=== PATIENT | female | born 1950 | race Caucasian/White ===

== ENCOUNTER 2018-08-12 09:12 | Day surgery (SDC) | payer MEDICARE, BC ==
[~2018-08-12] VITALS: Ht 172.7 cm; Wt 70.5 kg
[2018-08-12 11:23] VITALS: BP 132/80
[2018-08-12] MEDS ORDERED: NAPR220C2 PO (11:23)
[2018-08-12] MEDS ORDERED: NORT25CA78 PO (11:23)
[2018-08-12] MEDS ORDERED: ASPI1TAB31 PO (11:23)
[2018-08-12] MEDS ORDERED: SUMA50TA3 PO (11:23)
[2018-08-12] MEDS ORDERED: VERAPAMIL 2.5 MG/ML, 2ML ONE (12:35)
[2018-08-12] MEDS ORDERED: FENTANYL PF 100 MCG/2ML ONE (12:35)
[2018-08-12] MEDS ORDERED: MIDAZOLAM 1 MG/ML, 2ML ONE (12:35)
[2018-08-12] MEDS ORDERED: LIDOCAINE-MPF 1%, 5ML ONE (12:35)
[2018-08-12] MEDS ORDERED: HEPARIN 1,000 UNITS/ML, 10ML ONE (13:01)
[2018-08-12] MEDS ORDERED: SODIUM CHLORIDE 0.9% 1,000 ML IV SCH (13:18)
== END 2018-08-12 15:54 | disposition home or self-care (01) ==
LOC: CACL 09:12 → EDSEX 11:15 → CACL 15:54
PROVIDERS: ATTEND Internal Medicine Cardiovascular Disease
DX: I44.7 Left bundle-branch block, unspecified (principal); R07.89 Other chest pain
CPT/HCPCS: 93458; 99156; C1769; C1894; J1644; J2250; J3010; Q9967

== ENCOUNTER 2020-09-15 14:00 | Inpatient (IN) | payer MEDICARE, BC ==
[~2020-09-15] VITALS: Ht 172.7 cm; Wt 77.2 kg
[~2020-09-15 14:00] MED LIST: ASPI1TAB31 PO; NAPR220C2 PO; NORT25CA78 PO; SUMA50TA3 PO
[2020-09-15] MEDS ORDERED: BISACODYL 10 MG SUPP PR PRN (15:30)
[2020-09-15] MEDS ORDERED: LABETALOL 5MG/ML, 20ML IVPush PRN (15:30)
[2020-09-15] MEDS ORDERED: POLYETHYLENE GLYCOL 17 GM PACKET PO PRN (15:30)
[2020-09-15] MEDS ORDERED: ONDANSETRON 2MG/ML, 2ML IVPush PRN (15:30)
[2020-09-15] MEDS ORDERED: OXYcodone IR 5MG TABLET PO PRN (15:30)
[2020-09-15] MEDS ORDERED: PLEASE ENTER HEIGHT AND WEIGHT MC SCH (16:30)
[2020-09-15] MEDS ORDERED: DOBUTAMINE/D5W PMX 250 ML ONE (16:32)
[2020-09-15] MEDS: DOBUTAMINE IV PRN (16:35)
[2020-09-15] MEDS: DEXTROSE 5% IV PRN (16:35)
[2020-09-15 16:42] VITALS: BP 99/55
[2020-09-15 17:46] LABS: MEAN CORPUSCULAR HEMOGLOBIN 27.1 pg (27.0-34.8); MEAN CORPUSCULAR HGB CONC 31.5 g/dL (32.4-35.8); MEAN PLATELET VOLUME 7.9 fL (7.4-10.4); PLATELET COUNT 196 x10^3/uL (130-400); RED BLOOD COUNT 4.03 x10^6/uL (3.82-5.3)
[2020-09-15 17:56] LABS: ANION GAP 10 mmol/L (5-15); CALCIUM 7.8 mg/dL (8.5-10.1); CHLORIDE 99 mmol/L (98-107); CREATININE 2.92 mg/dL (0.55-1.02)
[2020-09-15 18:06] LABS: MD YES
[2020-09-15 18:08] LABS: ANISOCYTOSIS 1+; BANDS%(MANUAL) 4 % (0-7); HYPOCHROMIA 1+; LYMPH#(MANUAL) 2.64 x10^3/uL (1-3.4); LYMPHS% (MANUAL) 15 % (22-44); MONOS#(MANUAL) 0.35 x10^3/uL (0.3-2.7); MONOS% (MANUAL) 2 % (2-9); SEGS% (MANUAL) 79 % (42-75)
[2020-09-15 18:09] LABS: ECHINOCYTES 1+; OVALOCYTES 1+; POLYCHROMASIA 1+
[2020-09-15 18:10] LABS: <PLATELET ESTIMATE> ADEQUATE; <PLT MORPHOLOGY> NORMAL PLT MORPH
[2020-09-15] MEDS ORDERED: FUROSEMIDE 40 MG/4 ML IV ONE (21:00)
[2020-09-15] MEDS: DILTIAZEM 5 MG/ML, 5ML IVPush PRN (21:19)
[2020-09-15] MEDS: HEPARIN 5,000 UNITS/ML, 1ML SQ SCH (21:19)
[2020-09-16] MEDS: DILTIAZEM 5 MG/ML, 5ML IVPush PRN (00:27)
[2020-09-16 00:29] LABS: MICROSCOPIC INDICATED
[2020-09-16 00:36] LABS: CHLORIDE,URINE RANDOM 50 mmol/L; POTASSIUM,URINE RANDOM 36 mmol/L; SODIUM,URINE RANDOM 14 mmol/L
[2020-09-16 04:40] LABS: MEAN CORPUSCULAR HEMOGLOBIN 27.6 pg (27.0-34.8); MEAN CORPUSCULAR HGB CONC 32.7 g/dL (32.4-35.8); PLATELET COUNT 168 x10^3/uL (130-400); RED BLOOD COUNT 3.89 x10^6/uL (3.82-5.3); RED CELL DISTRIBUTION WIDTH 15.6 % (9.6-15.2)
[2020-09-16 04:47] LABS: INTERNATIONAL NORMALIZED RATIO 2.12 (0.93-1.1); PROTHROMBIN TIME 22.3 Seconds (9.6-11.5)
[2020-09-16 04:49] LABS: ALBUMIN 2.9 g/dL (3.4-5.0); ANION GAP 9 mmol/L (5-15); CALCIUM 7.8 mg/dL (8.5-10.1); CHLORIDE 98 mmol/L (98-107); CREATININE 2.44 mg/dL (0.55-1.02)
[2020-09-16 05:08] LABS: ALANINE AMINOTRANSFERASE 3360 U/L (12-78); ALKALINE PHOSPHATASE 181 U/L (45-117); BILIRUBIN,TOTAL 1.4 mg/dL (0.2-1.0)
[2020-09-16] MEDS ORDERED: DOBUTAMINE/D5W PMX 0 ML ONE (05:46)
[2020-09-16] MEDS: HEPARIN 5,000 UNITS/ML, 1ML SQ SCH ×3 (05:49→22:16)
[2020-09-16 05:51] LABS: MD YES
[2020-09-16 05:53] LABS: <PLATELET ESTIMATE> ADEQUATE; <PLT MORPHOLOGY> NORMAL PLT MORPH; ANISOCYTOSIS 1+; BAND#(MANUAL) 0.14 x10^3/uL; BANDS%(MANUAL) 1 % (0-7); HYPOCHROMIA 1+; LYMPHS% (MANUAL) 8 % (22-44); MONOS#(MANUAL) 0.55 x10^3/uL (0.3-2.7); MONOS% (MANUAL) 4 % (2-9); OVALOCYTES 1+; POLYCHROMASIA 1+; SEG#(MANUAL) 11.92 x10^3/uL (1.8-6.8); SEGS% (MANUAL) 87 % (42-75)
[2020-09-16] MEDS: DEXTROSE 5% IV PRN (07:47)
[2020-09-16] MEDS: DOBUTAMINE IV PRN (07:47)
[2020-09-16 08:24] LABS: FREE T4 (FREE THYROXINE) 1.16 ng/dL (0.76-1.46)
[2020-09-16] MEDS ORDERED: DIGOXIN 0.25 MG/ML, 2ML IVPush ONE (09:30)
[2020-09-16] MEDS: SENNA/DOCUSATE TABLET PO SCH (10:17)
[2020-09-17] MEDS: HEPARIN 5,000 UNITS/ML, 1ML SQ SCH (05:48)
[2020-09-17 06:07] LABS: BASOPHILS % (AUTO) 0 % (0-1); EOSINOPHILS % (AUTO) 1 % (1-7); LYMPHOCYTES % (AUTO) 14 % (22-44); MEAN CORPUSCULAR HEMOGLOBIN 27.6 pg (27.0-34.8); MEAN CORPUSCULAR HGB CONC 32.6 g/dL (32.4-35.8); MEAN PLATELET VOLUME 8.2 fL (7.4-10.4); MONOCYTES % (AUTO) 9 % (2-9); NEUTROPHILS % (AUTO) 76 % (42-75); PLATELET COUNT 169 x10^3/uL (130-400); RED BLOOD COUNT 4.04 x10^6/uL (3.82-5.3); RED CELL DISTRIBUTION WIDTH 15.9 % (9.6-15.2)
[2020-09-17 06:09] LABS: MD NO
[2020-09-17 06:16] LABS: INTERNATIONAL NORMALIZED RATIO 1.5 (0.93-1.1); PROTHROMBIN TIME 15.8 Seconds (9.6-11.5)
[2020-09-17 06:18] LABS: ALBUMIN 2.8 g/dL (3.4-5.0); ANION GAP 8 mmol/L (5-15); CHLORIDE 99 mmol/L (98-107); CREATININE 1.16 mg/dL (0.55-1.02)
[2020-09-17 06:32] LABS: ALANINE AMINOTRANSFERASE 2546 U/L (12-78); ALKALINE PHOSPHATASE 203 U/L (45-117); BILIRUBIN,TOTAL 1.3 mg/dL (0.2-1.0); TOTAL PROTEIN 6.1 g/dL (6.4-8.2)
[2020-09-17] MEDS: SENNA/DOCUSATE TABLET PO SCH (09:00)
[2020-09-17] MEDS ORDERED: HEPARIN 5,000 UNITS/ML, 1ML IV ONE (09:30)
[2020-09-17] MEDS: HEPARIN 25,000 UNITS/250ML PMX 250 ML IV PRN (10:03)
[2020-09-17] MEDS ORDERED: POTASSIUM CHLORIDE 20 MEQ TAB.ER.PRT PO ONE (13:00)
[2020-09-17] MEDS ORDERED: PROPOFOL 10 MG/ML, 50ML ONE (13:27)
[2020-09-17] MEDS: FUROSEMIDE 20 MG/2 ML IV SCH (14:54)
[2020-09-17 14:58] LABS: ANA SCREEN NEGATIVE (Negative)
[2020-09-17 17:54] VITALS: BP 111/76
[2020-09-17] MEDS ORDERED: CALCIUM CARBONATE 500 MG TAB.CHEW PO PRN (18:30)
[2020-09-17 19:38] VITALS: BP 116/76
[2020-09-17] MEDS: HEPARIN 5,000 UNITS/ML, 1ML IV PRN (22:51)
[2020-09-18 01:55] VITALS: BP 121/69
[2020-09-18 05:43] LABS: ALBUMIN 2.7 g/dL (3.4-5.0); ANION GAP 7 mmol/L (5-15); CALCIUM 8.3 mg/dL (8.5-10.1); CHLORIDE 97 mmol/L (98-107)
[2020-09-18 05:51] LABS: ALANINE AMINOTRANSFERASE 2085 U/L (12-78); ALKALINE PHOSPHATASE 213 U/L (45-117); BILIRUBIN,TOTAL 1.5 mg/dL (0.2-1.0); CREATININE 0.82 mg/dL (0.55-1.02); TOTAL PROTEIN 6.1 g/dL (6.4-8.2)
[2020-09-18 08:05] VITALS: BP 120/82
[2020-09-18] MEDS: SENNA/DOCUSATE TABLET PO SCH (08:47)
[2020-09-18] MEDS: FUROSEMIDE 20 MG/2 ML IV SCH (08:48)
[2020-09-18] MEDS ORDERED: POTASSIUM CHLORIDE 20 MEQ TAB.ER.PRT PO SCH (09:00)
[2020-09-18] MEDS: HEPARIN 25,000 UNITS/250ML PMX 250 ML IV PRN (12:14)
[2020-09-18 13:44] VITALS: BP 113/77
[2020-09-18 20:30] VITALS: BP 116/76
[2020-09-18] MEDS: LISINOPRIL 5 MG TABLET PO SCH (20:30)
[2020-09-19 01:25] VITALS: BP 118/77
[2020-09-19 06:20] LABS: BASOPHILS % (AUTO) 1 % (0-1); EOSINOPHILS % (AUTO) 4 % (1-7); LYMPHOCYTES % (AUTO) 26 % (22-44); MEAN CORPUSCULAR HEMOGLOBIN 27.2 pg (27.0-34.8); MEAN CORPUSCULAR HGB CONC 32.7 g/dL (32.4-35.8); MONOCYTES % (AUTO) 14 % (2-9); NEUTROPHILS % (AUTO) 56 % (42-75); PLATELET COUNT 162 x10^3/uL (130-400); RED BLOOD COUNT 3.96 x10^6/uL (3.82-5.3)
[2020-09-19 06:26] LABS: CHLORIDE 98 mmol/L (98-107)
[2020-09-19 06:30] LABS: MD NO
[2020-09-19 06:37] LABS: ALANINE AMINOTRANSFERASE 1378 U/L (12-78); ALBUMIN 2.3 g/dL (3.4-5.0); ALKALINE PHOSPHATASE 180 U/L (45-117); ANION GAP 5 mmol/L (5-15); BILIRUBIN,TOTAL 1.3 mg/dL (0.2-1.0); CALCIUM 7.8 mg/dL (8.5-10.1); TOTAL PROTEIN 5.6 g/dL (6.4-8.2)
[2020-09-19 06:57] VITALS: BP 112/73
[2020-09-19] MEDS ORDERED: POTASSIUM CHLORIDE 20 MEQ TAB.ER.PRT PO ONE (08:00)
[2020-09-19] MEDS: FUROSEMIDE 40 MG TABLET PO SCH (10:27)
[2020-09-19] MEDS: SENNA/DOCUSATE TABLET PO SCH (10:27)
[2020-09-19 12:20] VITALS: BP 102/68
[2020-09-19] MEDS: HEPARIN 25,000 UNITS/250ML PMX 250 ML IV PRN (13:57)
[2020-09-19 19:30] VITALS: BP 106/73
[2020-09-19] MEDS: LISINOPRIL 5 MG TABLET PO SCH (20:02)
[2020-09-20] VITALS (7 sets, daily range): BP systolic 93–114; BP diastolic 65–72
[2020-09-20 05:58] LABS: ANION GAP 8 mmol/L (5-15); CALCIUM 7.9 mg/dL (8.5-10.1); CHLORIDE 98 mmol/L (98-107)
[2020-09-20] MEDS: HEPARIN 5,000 UNITS/ML, 1ML IV PRN (06:13)
[2020-09-20] MEDS ORDERED: POTASSIUM CHLORIDE 20 MEQ TAB.ER.PRT PO ONE (08:30)
[2020-09-20] MEDS: SENNA/DOCUSATE TABLET PO SCH (09:23)
[2020-09-20] MEDS: CARVEDILOL 3.125 MG TABLET PO SCH ×2 (09:24→20:59)
[2020-09-20] MEDS: FUROSEMIDE 40 MG TABLET PO SCH (09:24)
[2020-09-20] MEDS: HEPARIN 25,000 UNITS/250ML PMX 250 ML IV PRN (15:31)
[2020-09-20] MEDS: LISINOPRIL 5 MG TABLET PO SCH (20:57)
[2020-09-21 01:00] VITALS: BP 118/62
[2020-09-21 05:32] LABS: BASOPHILS % (AUTO) 0 % (0-1); EOSINOPHILS % (AUTO) 4 % (1-7); LYMPHOCYTES % (AUTO) 22 % (22-44); MEAN CORPUSCULAR HGB CONC 32.2 g/dL (32.4-35.8); MEAN PLATELET VOLUME 8.2 fL (7.4-10.4); MONOCYTES % (AUTO) 13 % (2-9); NEUTROPHILS % (AUTO) 61 % (42-75); PLATELET COUNT 178 x10^3/uL (130-400); RED BLOOD COUNT 4.21 x10^6/uL (3.82-5.3); RED CELL DISTRIBUTION WIDTH 16.4 % (9.6-15.2)
[2020-09-21 05:37] LABS: ALBUMIN 2.4 g/dL (3.4-5.0); ANION GAP 9 mmol/L (5-15); CALCIUM 8.4 mg/dL (8.5-10.1); CHLORIDE 100 mmol/L (98-107)
[2020-09-21 05:41] LABS: ALANINE AMINOTRANSFERASE 795 U/L (12-78); ALKALINE PHOSPHATASE 158 U/L (45-117); BILIRUBIN,TOTAL 0.9 mg/dL (0.2-1.0); CREATININE 0.66 mg/dL (0.55-1.02)
[2020-09-21] MEDS: CARVEDILOL 3.125 MG TABLET PO SCH ×2 (05:59→18:49)
[2020-09-21 06:19] LABS: MD SCAN
[2020-09-21 07:52] VITALS: BP 99/63
[2020-09-21] MEDS: FUROSEMIDE 40 MG TABLET PO SCH (08:13)
[2020-09-21] MEDS: SENNA/DOCUSATE TABLET PO SCH (08:14)
[2020-09-21] MEDS ORDERED: POTASSIUM CHLORIDE 20 MEQ TAB.ER.PRT PO ONE (09:30)
[2020-09-21] MEDS: HEPARIN 25,000 UNITS/250ML PMX 250 ML IV PRN (10:32)
[2020-09-21 10:38] LABS: CHOL/HDL RATIO 1.9; LDL/HDL RATIO 0.7 (0.5-3.0)
[2020-09-21 12:35] VITALS: BP 105/63
[2020-09-21 18:38] VITALS: BP 94/65
[2020-09-21 19:25] VITALS: BP 105/73
[2020-09-22 01:03] VITALS: BP 112/66
[2020-09-22] MEDS: CARVEDILOL 3.125 MG TABLET PO SCH ×2 (05:33→18:14)
[2020-09-22] MEDS: HEPARIN 25,000 UNITS/250ML PMX 250 ML IV PRN (07:20)
[2020-09-22 07:26] VITALS: BP 104/71
[2020-09-22] MEDS ORDERED: POTASSIUM CHLORIDE 20 MEQ TAB.ER.PRT PO ONE (07:30)
[2020-09-22] MEDS: SENNA/DOCUSATE TABLET PO SCH (08:21)
[2020-09-22] MEDS: LOSARTAN 25MG TABLET PO SCH (08:21)
[2020-09-22] MEDS: SPIRONOLACTONE 25 MG TABLET PO SCH (08:21)
[2020-09-22] MEDS: FUROSEMIDE 40 MG TABLET PO SCH (08:22)
[2020-09-22 11:59] LABS: INTERNATIONAL NORMALIZED RATIO 1.07 (0.93-1.1); PROTHROMBIN TIME 11.3 Seconds (9.6-11.5)
[2020-09-22 13:41] VITALS: BP 91/67
[2020-09-22 18:10] VITALS: BP 99/66
[2020-09-22] MEDS ORDERED: PHARMACY MAY ADJ FOR RENAL FX MC PRN (19:30)
[2020-09-22] MEDS ORDERED: HEPARIN wt. based STROKE protocol MC PRN (20:00)
[2020-09-22] MEDS ORDERED: HEPARIN 25,000 UNITS/250ML PMX 250 ML IV PRN (20:00)
[2020-09-22 20:21] VITALS: BP 93/63
[2020-09-22] MEDS ORDERED: APIXABAN 5 MG TABLET PO SCH (21:00)
[2020-09-23 00:17] VITALS: BP 106/72
[2020-09-23] MEDS ORDERED: NITROGLYCERIN 0.4 MG BOTTLE (25 TABS) SL PRN (02:00)
[2020-09-23] MEDS ORDERED: NITROGLYCERIN 0.4 MG/SPRAY SL PRN (02:00)
[2020-09-23 06:29] VITALS: BP 97/68
[2020-09-23] MEDS: CARVEDILOL 3.125 MG TABLET PO SCH ×2 (06:29→18:17)
[2020-09-23 06:36] LABS: CHLORIDE 105 mmol/L (98-107)
[2020-09-23 06:42] LABS: BASOPHILS % (AUTO) 1 % (0-1); EOSINOPHILS % (AUTO) 6 % (1-7); LYMPHOCYTES % (AUTO) 25 % (22-44); MEAN CORPUSCULAR HEMOGLOBIN 26.9 pg (27.0-34.8); MEAN CORPUSCULAR HGB CONC 32.3 g/dL (32.4-35.8); MEAN PLATELET VOLUME 9.1 fL (7.4-10.4); MONOCYTES % (AUTO) 9 % (2-9); NEUTROPHILS % (AUTO) 59 % (42-75); PLATELET COUNT 205 x10^3/uL (130-400); RED BLOOD COUNT 4.11 x10^6/uL (3.82-5.3); RED CELL DISTRIBUTION WIDTH 16.4 % (9.6-15.2)
[2020-09-23 06:46] LABS: ALANINE AMINOTRANSFERASE 437 U/L (12-78); ALBUMIN 2.3 g/dL (3.4-5.0); ALKALINE PHOSPHATASE 141 U/L (45-117); ANION GAP 6 mmol/L (5-15); BILIRUBIN,TOTAL 0.6 mg/dL (0.2-1.0); CALCIUM 9.1 mg/dL (8.5-10.1); CREATININE 0.75 mg/dL (0.55-1.02); TOTAL PROTEIN 6.1 g/dL (6.4-8.2)
[2020-09-23 07:29] VITALS: BP 97/67
[2020-09-23 08:01] LABS: MD SCAN
[2020-09-23] MEDS ORDERED: BUMETANIDE 1 MG TABLET PO SCH (09:00)
[2020-09-23] MEDS: SENNA/DOCUSATE TABLET PO SCH (09:10)
[2020-09-23] MEDS: SPIRONOLACTONE 25 MG TABLET PO SCH (09:11)
[2020-09-23] MEDS: LOSARTAN 25MG TABLET PO SCH (09:11)
[2020-09-23] MEDS: TORSEMIDE 20 MG TABLET PO SCH (11:42)
[2020-09-23] MEDS ORDERED: LORazepam 0.5MG TABLET PO ONE (12:30)
[2020-09-23 14:40] VITALS: BP 95/63
[2020-09-23 18:14] VITALS: BP 95/66
[2020-09-23 18:53] VITALS: BP 96/58
[2020-09-23] MEDS: APIXABAN 5 MG TABLET PO SCH (20:57)
[2020-09-24] MEDS: MELATONIN 3 MG TABLET PO PRN ×2 (01:12→20:44)
[2020-09-24 01:14] VITALS: BP 97/69
[2020-09-24 05:44] LABS: ALANINE AMINOTRANSFERASE 366 U/L (12-78); ALBUMIN 2.6 g/dL (3.4-5.0); ANION GAP 8 mmol/L (5-15); CALCIUM 9.2 mg/dL (8.5-10.1); CHLORIDE 104 mmol/L (98-107); CREATININE 0.71 mg/dL (0.55-1.02)
[2020-09-24 05:49] LABS: ALKALINE PHOSPHATASE 129 U/L (45-117); BILIRUBIN,TOTAL 0.7 mg/dL (0.2-1.0); TOTAL PROTEIN 6.5 g/dL (6.4-8.2)
[2020-09-24 07:10] VITALS: BP 110/75
[2020-09-24] MEDS: CARVEDILOL 3.125 MG TABLET PO SCH ×2 (07:12→17:23)
[2020-09-24] MEDS: APIXABAN 5 MG TABLET PO SCH ×2 (08:17→20:41)
[2020-09-24] MEDS: SENNA/DOCUSATE TABLET PO SCH (08:17)
[2020-09-24 08:40] VITALS: BP 87/56
[2020-09-24] MEDS ORDERED: SPIRONOLACTONE 25 MG TABLET PO SCH (09:00)
[2020-09-24] MEDS: LOSARTAN 25MG TABLET PO SCH (09:27)
[2020-09-24] MEDS: TORSEMIDE 20 MG TABLET PO SCH (09:28)
[2020-09-24 12:22] VITALS: BP 103/66
[2020-09-24 17:23] VITALS: BP 106/75
[2020-09-24 19:52] VITALS: BP 115/82
[2020-09-25 00:43] VITALS: BP 101/67
[2020-09-25 05:08] LABS: BASOPHILS % (AUTO) 1 % (0-1); EOSINOPHILS % (AUTO) 3 % (1-7); LYMPHOCYTES % (AUTO) 20 % (22-44); MEAN CORPUSCULAR HEMOGLOBIN 26.6 pg (27.0-34.8); MEAN CORPUSCULAR HGB CONC 31.9 g/dL (32.4-35.8); MEAN PLATELET VOLUME 7.9 fL (7.4-10.4); MONOCYTES % (AUTO) 9 % (2-9); NEUTROPHILS % (AUTO) 67 % (42-75); PLATELET COUNT 236 x10^3/uL (130-400); RED BLOOD COUNT 3.95 x10^6/uL (3.82-5.3); RED CELL DISTRIBUTION WIDTH 16.3 % (9.6-15.2)
[2020-09-25 05:10] LABS: ALANINE AMINOTRANSFERASE 287 U/L (12-78); ALBUMIN 2.5 g/dL (3.4-5.0); ANION GAP 7 mmol/L (5-15); CALCIUM 8.9 mg/dL (8.5-10.1); CHLORIDE 106 mmol/L (98-107); CREATININE 0.63 mg/dL (0.55-1.02)
[2020-09-25 05:12] LABS: ALKALINE PHOSPHATASE 127 U/L (45-117); BILIRUBIN,TOTAL 0.6 mg/dL (0.2-1.0); TOTAL PROTEIN 6.6 g/dL (6.4-8.2)
[2020-09-25 05:18] LABS: MD NO
[2020-09-25 06:21] VITALS: BP 107/74
[2020-09-25] MEDS: CARVEDILOL 3.125 MG TABLET PO SCH (06:21)
[2020-09-25 07:43] VITALS: BP 110/75
[2020-09-25] MEDS ORDERED: SPIRONOLACTONE 25 MG TABLET PO SCH (09:00)
[2020-09-25] MEDS ORDERED: LOSARTAN 25MG TABLET PO SCH (09:00)
[2020-09-25] MEDS ORDERED: TORSEMIDE 20 MG TABLET PO SCH (09:00)
[2020-09-25] MEDS: APIXABAN 5 MG TABLET PO SCH (10:06)
[2020-09-25] MEDS: SENNA/DOCUSATE TABLET PO SCH (10:06)
[2020-09-25] MEDS ORDERED: METO25TA91 PO (10:20)
[2020-09-25] MEDS ORDERED: SPIR25TA PO (10:20)
[2020-09-25] MEDS ORDERED: APIX5TAB PO (10:20)
[2020-09-25] MEDS ORDERED: LOSA25TA25 PO (10:20)
[2020-09-25] MEDS ORDERED: TORS10TA4 PO (10:21)
[2020-09-25] MEDS ORDERED: METOPROLOL SUCCINATE 25 MG TAB.ER.24H PO SCH (21:00)
== END 2020-09-25 14:10 | disposition home or self-care (01) | DRG 441 ==
LOC: CCU 16:09 → 5SO 09-17 17:19 → DCLOUNGE 09-25 13:45
PROVIDERS: ADMIT Internal Medicine; ATTEND Internal Medicine
PROC: 02HV33Z Insertion of Infusion Device into Superior Vena Cava, Percutaneous Approach (ICD-10-PCS; 2020-09-15)
PROC: 0T9B30Z Drainage of Bladder with Drainage Device, Percutaneous Approach (ICD-10-PCS; 2020-09-16)
PROC: 5A2204Z Restoration of Cardiac Rhythm, Single (ICD-10-PCS; principal; 2020-09-17 13:30)
DX: K72.00 Acute and subacute hepatic failure without coma (principal); I50.23 Acute on chronic systolic (congestive) heart failure; J96.01 Acute respiratory failure with hypoxia; N17.0 Acute kidney failure with tubular necrosis; J18.9 Pneumonia, unspecified organism; I13.0 Hypertensive heart and chronic kidney disease with heart failure and stage 1 through stage 4 chronic kidney disease, or unspecified chronic kidney disease; R57.9 Shock, unspecified; D68.4 Acquired coagulation factor deficiency; D68.69 Other thrombophilia; E87.1 Hypo-osmolality and hyponatremia; E87.4 Mixed disorder of acid-base balance; I48.92 Unspecified atrial flutter; Z20.822 Contact with and (suspected) exposure to COVID-19; G43.909 Migraine, unspecified, not intractable, without status migrainosus; I25.10 Atherosclerotic heart disease of native coronary artery without angina pectoris; I25.5 Ischemic cardiomyopathy; I27.81 Cor pulmonale (chronic); I44.7 Left bundle-branch block, unspecified; I48.0 Paroxysmal atrial fibrillation; E87.5 Hyperkalemia; D72.829 Elevated white blood cell count, unspecified; I50.82 Biventricular heart failure; K21.9 Gastro-esophageal reflux disease without esophagitis; L40.9 Psoriasis, unspecified; N18.9 Chronic kidney disease, unspecified; Z82.49 Family history of ischemic heart disease and other diseases of the circulatory system; Z87.891 Personal history of nicotine dependence; Z79.899 Other long term (current) drug therapy; Z79.891 Long term (current) use of opiate analgesic; Z79.01 Long term (current) use of anticoagulants; Z90.49 Acquired absence of other specified parts of digestive tract; Z90.721 Acquired absence of ovaries, unilateral; Z79.82 Long term (current) use of aspirin
CPT/HCPCS: 36415; 36556; 71045; 71046; 74181; 76770; 77001; 80048; 80053; 80061; 80074; 80162; 81001; 82140; 82150; 82436; 82570; 82787; 83516; 83520; 83690; 83735; 83880; 84100; 84133; 84300; 84439; 84443; 84481; 85025; 85520; 85610; 86038; 86160; 86162; 86256; 86376; 86644; 86645; 87081; 93005; 93306; 93356; 93970; 93975; G0378; J1644; J2704; J7060; 86226; C1751; J1160; J1250; J1642; J1940